=== PATIENT | male | born 1960 | race Two or more races ===

== ENCOUNTER 2017-06-21 15:50 | Emergency (ER) | payer SELFPAY ==
[~2017-06-21] VITALS: Ht 167.6 cm; Wt 79.4 kg
[2017-06-21] MEDS ORDERED: LORAZEPAM INJ 2 MG/ML VIAL ONE (15:54)
[2017-06-21 16:01] VITALS: BP 122/82
[2017-06-21] MEDS ORDERED: LORAZEPAM INJ 2 MG/ML VIAL IM ONE (16:30)
== END 2017-06-21 20:35 | disposition home or self-care (01) ==
LOC: EDBD 15:52 → ER 15:52
DX: F10.129 Alcohol abuse with intoxication, unspecified (principal); R41.82 Altered mental status, unspecified
CPT/HCPCS: 36415; 70450; 96372; 99285; A4606; G0480; J2060; Z7610